=== PATIENT | female | born 1955 | race Caucasian/White ===

== ENCOUNTER → 2017-02-13 | Outpatient (CLI) | payer BC, OTHER ==
[~2017-02-13] MED LIST: CPR500T PO; DICY20TA10 PO; ESTR42.52 VG; HYDR-3583 PO; LOVA60TA2 PO; OMEP-10 PO; ONDAN4ODT SL; OXYC-12 PO
--- NOTE | 2017-02-14 10:37 | Diagnostic Imaging Report ---
Bilateral screening mammogram The current study was also evaluated with a Computer Aided Detection (CAD) system. Indication: Screening. No current complaints stated on the questionnaire. COMPARISON: 02/10/16 FINDINGS: The breasts are composed of scattered fibroglandular densities. There are occasional benign-appearing calcifications. Allowing for technique and positional differences, no suspicious change is seen. IMPRESSION: No significant change. ACR BI-RADS Category 2: Benign findings. Result letter will be mailed to the patient. Note: At least 10% of breast cancer is not imaged by mammography. Dictated by: Dictated on workstation # [id number]
== END ==
LOC: RAD 10:04
PROVIDERS: ATTEND Family Medicine
DX: Z12.31 Encounter for screening mammogram for malignant neoplasm of breast (principal)
CPT/HCPCS: 77067

== ENCOUNTER → 2018-01-11 | Outpatient (CLI) | payer BC ==
[~2018-01-11] MED LIST changes: +ATOR10TA66 PO; +ESTR1TAB27 PO; +OMEP20TA7 PO
[2018-01-11 07:56] LABS: BUN/CREATININE RATIO 6; CREATININE SERUM 0.78 MG/DL (0.60-1.30); GFR ESTIMATED > 60
[2018-01-11] MEDS: IOHEXOL 350 MG/ML 100 ML (OMNIPAQUE 350) VIAL IV ONE (08:07)
[2018-01-11] MEDS: NS 250 ML (IVPB) BAG IV ONE (08:08)
--- NOTE | 2018-01-11 11:02 | Diagnostic Imaging Report ---
PROCEDURE: CT abdomen and pelvis with contrast. TECHNIQUE: Multiple contiguous axial images were obtained through the abdomen and pelvis after administration of intravenous contrast. INDICATION: Abdominal pain and constipation. COMPARISON: Comparison is made with prior CT from 03/28/2012. FINDINGS: Imaging through the lung bases does show two tiny subpleural nodules in the posterior lateral left lower lobe, stable when compared with CT from 2012. No discrete liver masses identified. The gallbladder is surgically absent. The pancreas and spleen are unremarkable. No adrenal mass is identified. The kidneys are unremarkable. Aorta is nonaneurysmal. No central retroperitoneal or mesenteric lymphadenopathy is identified. Small and large bowel loops are normal caliber. There is no obstruction. Moderate stool in the right colon is seen. There is no free fluid identified. The bladder is unremarkable. Bony structures are nonacute. IMPRESSION: Essentially unremarkable CT of the abdomen and pelvis with contrast. No significant abnormality is seen. Dictated by: Dictated on workstation # [id number]
== END ==
LOC: RAD 06:45
PROVIDERS: ATTEND Surgery
DX: K59.00 Constipation, unspecified (principal)
CPT/HCPCS: 36415; 74177; 82565; 84520

== ENCOUNTER 2018-01-31 14:00 | Outpatient (CLI) | payer BC ==
[~2018-01-31] VITALS: Ht 167.6 cm; Wt 64.0 kg
[~2018-01-31 14:00] MED LIST changes: -ATOR10TA66 PO; -ESTR1TAB27 PO; -OMEP20TA7 PO
[2018-01-31] MEDS ORDERED: ATOR10TA66 PO (14:21)
[2018-01-31] MEDS ORDERED: ESTR1TAB27 PO (14:21)
[2018-01-31] MEDS ORDERED: OMEP20TA7 PO (14:28)
== END 2018-01-31 14:30 ==
LOC: PREOP 14:00
PROVIDERS: ATTEND Surgery
DX: Z01.818 Encounter for other preprocedural examination (principal); Z87.19 Personal history of other diseases of the digestive system

== ENCOUNTER 2018-02-05 12:52 | Day surgery (SDC) | payer BC ==
[~2018-02-05] VITALS: Ht 167.6 cm; Wt 64.0 kg
[~2018-02-05 12:52] MED LIST changes: +ATOR10TA66 PO; +ESTR1TAB27 PO; +OMEP20TA7 PO
--- OUTSIDE RECORDS SUMMARY | 2018-02-05 12:55 | XMS REPORT | Continuity of Care Document ---
Author Author [facility] Organization [facility] Address Unknown Phone Unavailable Allergies Active Description Code Type Severity Reaction Onset Reported/Identified Relationship to Patient Clinical Status Yes No Known Drug Allergies [id number] Drug Allergy Unknown N/A 05/27/2012 Medications There is no data. Problems Date Dx Coded Attending Type Code Diagnosis Diagnosed By 05/27/2012 Ot 272.0 PURE HYPERCHOLESTEROLEM 05/27/2012 Ot 536.8 STOMACH FUNCTION DIS NEC 05/27/2012 Ot 562.10 DIVERTICULOSIS COLON (W/O MENT OF HEMORR 05/27/2012 Ot V58.69 OTH MED,LT, CURRENT USE 06/11/2012 Ot 789.01 ABDOMINAL PAIN, RIGHT UPPER QUADRANT 07/11/2012 Ot 530.81 ESOPHAGEAL REFLUX 07/11/2012 Ot 575.11 CHRONIC CHOLECYSTITIS 12/28/2014 Ot V76.12 12/28/2014 Ot V76.12 12/28/2014 Ot V76.12 12/28/2014 Ot 721.8 12/28/2014 Ot 723.1 12/28/2014 Ot 562.10 12/28/2014 Ot 564.00 12/28/2014 Ot 787.3 12/28/2014 Ot 787.99 12/28/2014 Ot 789.00 12/28/2014 Ot V72.84 12/28/2014 Ot 789.01 12/28/2014 Ot V72.84 12/28/2014 CLAUDIA CURIEL MD Ot V76.12 12/28/2014 CLAUDIA CURIEL MD Ot V76.12 12/28/2014 NIKHIL MILLIGAN MD Ot 722.4 CERVICAL DISC DEGEN 12/28/2014 NIKHIL MILLIGAN MD Ot V58.69 OTH MED,LT,CURRENT USE 01/22/2015 NIKHIL MILLIGAN MD Ot 722.4 CERVICAL DISC DEGEN 01/22/2015 NIKHIL MILLIGAN MD Ot V58.69 OTH MED,LT,CURRENT USE 07/26/2015 NIKHIL MILLIGAN MD Ot M50.13 CERVICAL DISC DISORDER W RADICULOPATHY, 07/26/2015 NIKHIL MILLIGAN MD Ot Z79.899 OTHER [facility] (CURRENT) DRUG THERAPY 08/16/2015 NIKHIL MILLIGAN MD Ot M50.13 CERVICAL DISC DISORDER W RADICULOPATHY, 08/16/2015 NIKHIL MILLIGAN MD Ot Z79.899 OTHER [employer] (CURRENT) DRUG THERAPY 11/04/2015 NIKHIL MILLIGAN MD Ot M54.2 02/11/2016 CLAUDIA CURIEL MD Ot Z12.31 ENCNTR SCREEN MAMMOGRAM FOR MALIGNANT NE 02/16/2016 CLAUDIA CURIEL MD Ot Z12.31 ENCNTR SCREEN MAMMOGRAM FOR MALIGNANT NE 08/18/2016 Ot V76.12 OTH SCREEN MAMMO-MALIGN NEOPLASM OF JUSTINE 08/18/2016 Ot 721.8 SPINAL DISORDERS NEC 08/18/2016 Ot 723.1 CERVICALGIA 08/18/2016 Ot 562.10 DIVERTICULOSIS COLON (W/O MENT OF HEMORR 08/18/2016 Ot 564.00 UNSPEC CONSTIPATION 08/18/2016 Ot 787.3 FLATUL/ ERUCTAT/GAS PAIN 08/18/2016 Ot 787.99 OTHER GI SYSTEM SYMPTOMS 08/18/2016 Ot 789.00 ABDOMINAL PAIN, UNSPECIFIED SITE 08/18/2016 Ot V72.84 EXAM PRE- OPERATIVE NOS 08/18/2016 Ot 789.01 ABDOMINAL PAIN, RIGHT UPPER QUADRANT 08/18/2016 Ot V72.84 EXAM PRE- OPERATIVE NOS 08/18/2016 CLAUDIA CURIEL MD Ot V76.12 OTH SCREEN MAMMO-MALIGN NEOPLASM OF JUSTINE 08/18/2016 CLAUDIA CURIEL MD Ot V76.12 OTH SCREEN MAMMO-MALIGN NEOPLASM OF JUSTINE 08/18/2016 CLAUDIA CURIEL MD Ot V76.12 OTH SCREEN MAMMO-MALIGN NEOPLASM OF JUSTINE 08/18/2016 NIKHIL MILLIGAN MD Ot M54.2 CERVICALGIA 08/18/2016 CLAUDIA CURIEL MD Ot Z12.31 ENCNTR SCREEN MAMMOGRAM FOR MALIGNANT NE 08/21/2016 GALEN MOMIN MD Ot M48.02 SPINAL STENOSIS, CERVICAL REGION 08/21/2016 GALEN MOMIN MD Ot Z48.89 ENCOUNTER FOR OTHER SPECIFIED SURGICAL A 08/21/2016 GALEN MOMIN MD Ot Z98.1 ARTHRODESIS STATUS 02/14/2017 LEV YU MD Ot Z12.31 ENCNTR SCREEN MAMMOGRAM FOR MALIGNANT NE 02/14/2017 LEV YU MD Ot Z12.31 ENCNTR SCREEN MAMMOGRAM FOR MALIGNANT NE 02/26/2017 LEV YU MD Ot Z12.31 ENCNTR SCREEN MAMMOGRAM FOR MALIGNANT NE 01/10/2018 LEV YU MD Ot Z12.31 ENCNTR SCREEN MAMMOGRAM FOR MALIGNANT NE 01/10/2018 LEV YU MD Ot Z12.31 ENCNTR SCREEN MAMMOGRAM FOR MALIGNANT NE 01/14/2018 KARLI RICHTER DO Ot K59.00 CONSTIPATION, UNSPECIFIED 01/17/2018 KARLI RICHTER DO Ot K59.00 CONSTIPATION, UNSPECIFIED 01/21/2018 KARLI RICHTER DO Ot K59.00 CONSTIPATION, UNSPECIFIED Procedures There is no data. Results Test Result Range [id number] - 01/11/18 07:20 Serum or plasma urea nitrogen measurement (mass/volume) 5 mg/dL 7-18 Serum or plasma creatinine measurement (mass/volume) 0.78 mg/dL 0.60-1.30 Serum or plasma urea nitrogen/creatinine mass ratio 6 NRG Serum or plasma creatinine measurement with calculation of estimated glomerular filtration rate > NRG Encounters ACCT No. Visit Date/Time Discharge Status Pt. Type Provider Facility Loc./Unit Complaint [id number] 01/29/2018 05:56:00 01/29/2018 23:59:59 CLS Outpatient KALRI RICHTER DO [facility] PREOP COLONOSCOPY [id number] 01/11/2018 06:45:00 01/11/2018 23:59:59 CLS Outpatient KARLI RICHTER DO [facility] RAD ABDOMINAL PAIN, BILATERAL LOWER QUADRANT [id number] 02/13/2017 10:04:00 02/13/2017 23:59:59 CLS Outpatient LEV YU MD [facility] RAD SCREENING Z12.31 [id number] 08/18/2016 08:56:00 08/18/2016 23:59:59 CLS Outpatient GALEN MOMIN MD [facility] RAD S/P SPINAL FUSION [id number] 02/10/2016 11:07:00 02/10/2016 23:59:59 CLS Outpatient CLAUDIA CURIEL MD [facility] RAD SCREENING [id number] 09/27/2015 07:54:00 09/27/2015 23:59:59 CLS Outpatient NIKHIL MILLIGAN MD [facility] RAD CERVICALGIA [id number] 08/16/2015 11:42:00 08/16/2015 12:48:00 DIS Outpatient NIKHIL MILLIGAN MD [facility] CARD DISC DISORDER WITH RADICULOPATHY [id number] 07/26/2015 13:15:00 07/26/2015 14:39:00 DIS Outpatient NIKHIL MILLIGAN MD [facility] CARD DDD [id number] 02/01/2015 14:31:00 02/01/2015 23:59:59 CLS Outpatient CLAUDIA CURIEL MD [facility] RAD SCREENING [id number] 01/22/2015 09:54:00 01/22/2015 11:33:00 DIS Outpatient NIKHIL MILLIGAN MD [facility] CARD DDD [id number] 12/28/2014 14:01:00 12/28/2014 15:18:00 DIS Outpatient NIKHIL MILLIGAN MD [facility] CARD DDD [id number] 03/11/2014 10:03:00 03/11/2014 23:59:59 CLS Outpatient CLAUDIA CURIEL MD [facility] RAD SCREENING [id number] 03/10/2013 11:04:00 03/10/2013 23:59:59 CLS Outpatient CLAUDIA CURIEL MD [facility] RAD SCREENING [id number] 02/05/2018 12:45:00 PEN Preadmit KARLI RICHTER DO [facility] ENDO HX DIVERTICULITIS [id number] 12/28/2014 13:59:00 Document Registration [id number] 12/28/2014 13:59:00 Document Registration [id number] 07/09/2012 12:06:00 Document Registration [id number] 06/26/2012 07:53:00 Document Registration [id number] 06/12/2012 09:23:00 Document Registration [id number] 06/11/2012 10:52:00 Document Registration [id number] 05/24/2012 08:41:00 Document Registration [id number] 03/28/2012 08:24:00 Document Registration [id number] 03/13/2012 09:28:00 Document Registration [id number] 03/07/2012 08:38:00 Document Registration [id number] 01/13/2011 10:21:00 Document Registration
--- NOTE | 2018-02-05 13:04 | Progress Note-Pre Operative ---
Pre-Operative Progress Note H&P Reviewed The H&P was reviewed, patient examined and no changes noted. Date Seen by Provider: Feb 05, 2018 Time Seen by Provider: 13:04 Date H&P Reviewed: Feb 05, 2018 Time H&P Reviewed: 13:04 Pre-Operative Diagnosis: blood in stool, b/l lower quadrant abdominal pain KARLI RICHTER DO Feb 05, 2018 13:04
[2018-02-05 13:10] VITALS: BP 118/66
[2018-02-05] MEDS ORDERED: LACTATED RINGERS 1,000 ML IV ONE (13:11)
[2018-02-05] MEDS ORDERED: LACTATED RINGERS 1,000 ML IV PRN (13:15)
[2018-02-05] MEDS ORDERED: MIDAZOLAM 2 MG/2 ML (VERSED) VIAL ONE (13:56)
[2018-02-05] MEDS ORDERED: proPOfol 200 MG/20 ML (DIPRIVAN) VIAL IV ONE (13:56)
--- NOTE | 2018-02-05 14:48 | Discharge Inst-Simple/Standard ---
Discharge Inst-Standard Patient Instructions/Follow Up Plan of Care/Instructions/FU: 2 weeks William Activity as Tolerated: Yes Discharge Diet: Regular Diet (High Fiber) KARLI RICHTER DO Feb 05, 2018 14:48
--- NOTE | 2018-02-05 14:50 | Progress Note-Post Operative ---
Post-Operative Progess Note Surgeon (s)/Soap Worker (s) Surgeon KARLI RICHTER DO Soap Worker: na Pre-Operative Diagnosis blood in stool, b/l lower quadrant abdominal pain Post-Operative Diagnosis diverticulosis, question small area of colitis Procedure & Operative Findings Date of Procedure 02/05/18 Procedure Performed/Findings colonoscopy with cold biopsy sigmoid colon Anesthesia Type per [facility] Estimated Blood Loss Estimated blood loss (mL): min Specimens/Packing Specimens Removed sigmoid cold biopsy KARLI RICHTER DO Feb 05, 2018 14:50
[2018-02-05 15:05] VITALS: BP 122/69
[2018-02-05 15:30] VITALS: BP 118/66
[2018-02-05 15:35] VITALS: BP 118/66
--- NOTE | 2018-02-05 16:03 | Anesthesia-General Post-Op ---
MAC Patient Condition Mental Status/LOC: Same as Preop Cardiovascular: Satisfactory Nausea/Vomiting: Absent Respiratory: Satisfactory Pain: Controlled Complications: Absent Post Op Complications Complications None Follow Up Care/Instructions Patient Instructions None needed. Anesthesiology Discharge Order Discharge Order Patient was seen after the procedure and she was doing well, no complaints, stable vital signs, no apparent adverse anesthesia problems. GAL MADDOX DO Feb 05, 2018 16:03
--- NOTE | 2018-02-06 02:42 | OPERATIVE REPORT ---
DATE OF SERVICE: 02/05/2018 PREOPERATIVE DIAGNOSIS: Blood in stool. Bilateral lower quadrant abdominal pain. POSTOPERATIVE DIAGNOSIS: Diverticulosis, question small area of colitis in the sigmoid colon. PROCEDURE: Colonoscopy with cold biopsy of sigmoid colon. ANESTHESIA: Per [facility]. SURGEON: Karli Thomas DO ESTIMATED BLOOD LOSS: Minimal. COMPLICATIONS: None. INDICATIONS: The patient is a 62-year-old female who has had recent blood in the stool. She is having bilateral lower quadrant abdominal pain. She was explained risks and benefits of procedure and wished to proceed with procedure. Consent was signed on the chart. DESCRIPTION OF PROCEDURE: The patient was taken to the endoscopy suite, placed in left lateral recumbent position. Timeout was performed. Digital rectal exam was performed. some slight hemorrhoidal disease. No polyps, masses or ulcerations. Scope was inserted in the rectum and advanced all the way to the cecum with minimal difficulty. Prep was adequate. There were no polyps, masses or ulcerations in the cecum, ascending, transverse, descending and sigmoid colon. Throughout the entire colon, there is minimal to moderate amount of diverticulosis present. In the sigmoid colon noted to have a small amount of slight erythematous changes. Biopsy of this area was obtained. Question of a small area of colitis. Scope was continued to be slowly retracted back into the rectum, where it was also retroflexed noting just some slight hemorrhoidal disease. No other pathology. Scope was returned to its normal position, slowly withdrawn until completely removed, noting no other pathology. The patient tolerated procedure well without any complications. She was taken to recovery room in stable condition. RECOMMENDATIONS: The patient will follow up in office in 2 weeks to see how she is doing at that time. We would recommend high-fiber diet. We will need repeat colonoscopy in 5 years if family history of colon cancer or polyps. If no history of this, then the patient will be on routine screening in 10 years. If the patient has any problems prior to that, she should be reevaluated at that time. Job ID: [id number] DocumentID: [id number] Dictated Date: 02/05/2018 14:53:41 [employer] Date: 02/06/2018 02:42:18 Dictated By: KARLI THOMAS DO
== END 2018-02-05 15:35 | disposition home or self-care (01) ==
LOC: ENDO 12:52
PROVIDERS: ATTEND Surgery
DX: K92.1 Melena (principal); K57.30 Diverticulosis of large intestine without perforation or abscess without bleeding; F17.210 Nicotine dependence, cigarettes, uncomplicated

== ENCOUNTER → 2018-03-15 | Outpatient (CLI) | payer BC ==
--- NOTE | 2018-03-15 12:45 | Diagnostic Imaging Report ---
Digital mammogram bilateral screening with 3-D tomosynthesis. This study was compared to the prior exams of 02/13/2017, 02/10/2016, and 02/01/2015. At this time, there are no current complaints. The current study was also evaluated with a Computer Aided Detection (CAD) system. FINDINGS: The fibroglandular tissue in both breasts is heterogeneously dense. This does limit the sensitivity of this exam. Overall, there does not appear to have been any significant change when compared to the prior study. No primary or secondary sign of malignancy is noted. 3D tomographic images fail to show any sign of malignancy. IMPRESSION: There is no radiographic evidence for malignancy. ACR BI-RADS Category 1: Negative. Result letter will be mailed to the patient. Note: At least 10% of breast cancer is not imaged by mammography. Dictated by: Dictated on workstation # [id number]
== END ==
LOC: RAD 09:47
PROVIDERS: ATTEND Family Medicine
DX: Z12.31 Encounter for screening mammogram for malignant neoplasm of breast (principal)
CPT/HCPCS: 77067

== ENCOUNTER → 2019-03-17 | Outpatient (CLI) | payer BC ==
--- NOTE | 2019-03-17 12:33 | Diagnostic Imaging Report ---
INDICATION: Routine screening. COMPARISON: Comparison is made with prior mammograms from 03/15/2018 and 02/13/2017. TECHNIQUE: 2-D and 3-D bilateral screening mammography was performed. The current study was also evaluated with a Computer Aided Detection (CAD) system. 3-D tomosynthesis was also performed and reviewed. FINDINGS: Both breasts are heterogeneously dense, limiting the sensitivity of mammography. The parenchymal pattern is stable. No mass or malignant-appearing microcalcifications are seen. Axillae are unremarkable. IMPRESSION: No mammographic features suspicious for malignancy are identified. ACR BI-RADS Category 1: Negative. Result letter will be mailed to the patient. Note: At least 10% of breast cancer is not imaged by mammography. Dictated by: Dictated on workstation # [id number]
== END ==
LOC: RAD 10:20
PROVIDERS: ATTEND Family Medicine
DX: Z12.31 Encounter for screening mammogram for malignant neoplasm of breast (principal)
CPT/HCPCS: 77067

== ENCOUNTER → 2019-06-12 | Outpatient (CLI) | payer BC ==
[2019-06-12 16:17] LABS: BASOPHILS % (AUTO) 0 % (0-10); EOSINOPHILS # (AUTO) 0.1 10^3/uL (0.0-0.3); EOSINOPHILS % (AUTO) 1 % (0-10); HEMATOCRIT 45 % (35-52); LYMPHOCYTES # (AUTO) 1.9 X 10^3 (1.0-4.0); LYMPHOCYTES % (AUTO) 35 % (12-44); MEAN CORPUSCULAR HEMOGLOBIN 32 PG (25-34); MEAN CORPUSCULAR HGB CONC 33 G/DL (32-36); MEAN CORPUSCULAR VOLUME 96 FL (80-99); MEAN PLATELET VOLUME 8.7 FL (7.4-10.4); MONOCYTES # (AUTO) 0.4 X 10^3 (0.0-1.0); MONOCYTES % (AUTO) 7 % (0-12); NEUTROPHILS # (AUTO) 3.2 X 10^3 (1.8-7.8); NEUTROPHILS % (AUTO) 58 % (42-75); PLATELET COUNT 191 10^3/uL (130-400); RED CELL DISTRIBUTION WIDTH 12.2 % (10.0-14.5); WHITE BLOOD COUNT 5.5 10^3/uL (4.3-11.0)
[2019-06-12 16:28] LABS: ALANINE AMINOTRANSFERASE 20 U/L (0-55); ALBUMIN 4.4 GM/DL (3.2-4.5); ALKALINE PHOSPHATASE 61 U/L (40-136); BILIRUBIN,TOTAL 0.7 MG/DL (0.1-1.0); BUN/CREATININE RATIO 10; CALCIUM 9.2 MG/DL (8.5-10.1); CARBON DIOXIDE 27 MMOL/L (21-32); CHLORIDE 106 MMOL/L (98-107); CREATININE SERUM 0.87 MG/DL (0.60-1.30); GFR ESTIMATED > 60; GLUCOSE 108 MG/DL (70-105); SODIUM 143 MMOL/L (135-145); TOTAL PROTEIN 6.9 GM/DL (6.4-8.2)
== END ==
LOC: LAB 15:48
PROVIDERS: ATTEND Surgery
DX: R10.31 Right lower quadrant pain (principal)
CPT/HCPCS: 36415; 80053; 85025

== ENCOUNTER 2019-08-14 05:34 | Outpatient (CLI) | payer BC ==
[~2019-08-14] VITALS: Ht 167 cm; Wt 65.0 kg
[2019-08-14] MEDS ORDERED: MESA0.37 PO (10:44)
[2019-08-14] MEDS ORDERED: ESCI10TA55 PO (10:44)
[2019-08-14] MEDS ORDERED: PANT40TA3 PO (10:44)
[2019-08-14] MEDS ORDERED: POLY17PO6 PO (10:47)
[2019-08-19] MEDS ORDERED: SUCR1TAB36 PO (11:24)
== END 2019-08-14 10:49 | disposition home or self-care (01) ==
LOC: PREOP 05:34
PROVIDERS: ATTEND Surgery
DX: Z01.818 Encounter for other preprocedural examination (principal)

== ENCOUNTER → 2020-03-19 | Outpatient (CLI) | payer BC ==
[~2020-03-19] MED LIST changes: +ESCI10TA55 PO; +MESA0.37 PO; +PANT40TA3 PO; +POLY17PO6 PO; +SUCR1TAB36 PO
--- NOTE | 2020-03-19 12:51 | Diagnostic Imaging Report ---
EXAM: Digital mammogram, bilateral screening. COMPARISON: This study was compared to the prior exams of 03/17/2019, 03/15/2018 and 02/13/2017. There are no current complaints. The fibroglandular tissue in both breasts is heterogeneously dense. This does limit the sensitivity of this exam. In the interval since the previous study, 2 nodular densities have developed in the 6 o'clock position of the left breast at mid depth. These measure approximately 7.4 and 5.1 mm in size. The tomographic views show that these nodular densities have fairly smooth borders and I suspect that these are a benign process. Even so, I would recommend that a compression view of this area be obtained in both the CC and MLO projections as well as a true lateral view. Ultrasound of this portion of the left breast should also be performed. The overall appearance of the right breast has not changed significantly. IMPRESSION: Additional mammographic views and ultrasound of the left breast would be recommended for further study. ACR BI-RADS Category 4: Suspicious abnormality. Result letter will be mailed to the patient. Note: At least 10% of breast cancer is not imaged by mammography. Dictated by: Dictated on workstation # [id number]
== END ==
LOC: RAD 11:00
PROVIDERS: ATTEND Nurse Practitioner Family
DX: Z12.31 Encounter for screening mammogram for malignant neoplasm of breast (principal)
CPT/HCPCS: 77063; 77067

== ENCOUNTER → 2020-03-31 | Outpatient (CLI) | payer BC ==
--- NOTE | 2020-03-31 18:50 | Diagnostic Imaging Report ---
INDICATION: Left breast nodules. COMPARISON: Diagnostic mammogram performed 03/31/2020 and screening mammogram of 03/19/2020. EXAMINATION: Sonographic interrogation of the inferior left breast was performed. FINDINGS: There are two cysts at this 6:00 location of the left breast, 2-4 cm from the nipple. Largest cyst measures 8 mm x 4 mm x 7 mm. Smaller cyst measures 5 mm x 2 mm x 5 mm. These correspond to the mammographic densities. No solid mass is detected. IMPRESSION: Simple cysts at the 6:00 location of the left breast, corresponding to the mammographic densities. Patient may return to routine annual screening mammography. ACR BI-RADS Category 2: Benign findings. Result letter will be mailed to the patient. Note: At least 10% of breast cancer is not imaged by mammography. Dictated by: Dictated on workstation # [id number]
--- NOTE | 2020-04-01 10:40 | Diagnostic Imaging Report ---
INDICATION: Left breast densities. Patient presents for additional views. Correlation is made with recent screening study from 03/19/2020. Unilateral left 2-D and 3-D diagnostic mammography was performed. This includes spot compression CC and ML views as well as conventional 90 degree lateral view. Additional views show 2 circumscribed nodules in the inferior left breast 2 to 4 cm from the nipple. These are approximate 6-6:30 location. These most likely represent benign nodules. Further evaluation with ultrasound is recommended. No other suspicious abnormality is detected. IMPRESSION: BI-RADS code 0 Persistent nodular densities inferior left breast. Further evaluation with ultrasound is recommended and will be performed today. ACR BI-RADS Category 0: Incomplete. (Needs additional imaging evaluation). Result letter will be mailed to the patient. Note: At least 10% of breast cancer is not imaged by mammography. Dictated by: Dictated on workstation # [id number]
== END ==
LOC: RAD 13:26
PROVIDERS: ATTEND Nurse Practitioner Family
DX: N60.02 Solitary cyst of left breast (principal); N63.20 Unspecified lump in the left breast, unspecified quadrant; R92.2 Inconclusive mammogram; R92.8 Other abnormal and inconclusive findings on diagnostic imaging of breast
CPT/HCPCS: 76642; 77065; G0279

== ENCOUNTER → 2021-04-05 | Outpatient (CLI) | payer BC ==
[~2021-04-05] MED LIST changes: +ESCI-2 PO; -ESCI10TA55 PO; -PANT40TA3 PO; +PANT40TA52 PO
--- NOTE | 2021-04-05 16:34 | Diagnostic Imaging Report ---
INDICATION: Routine screening. COMPARISON: 03/19/2020 and 03/17/2019. TECHNIQUE: 2D and 3D bilateral screening mammography was performed with CAD. FINDINGS: Both breasts are heterogeneously dense, limiting the sensitivity of mammography. Circumscribed densities in the inferior and slightly medial left breast are again noted and have previously been shown to represent cysts. A density in the upper and outer aspect of the right breast does appear to be slightly more prominent on today's study. This may represent a cyst as well but additional views are recommended. No other masses are identified. No malignant-appearing microcalcifications are seen. The axillae are unremarkable. IMPRESSION: Right breast density. Additional views are recommended for further evaluation. ACR BI-RADS Category 0: Incomplete. (Needs additional imaging evaluation). Result letter will be mailed to the patient. Note: At least 10% of breast cancer is not imaged by mammography. Dictated by: Dictated on workstation # [id number]
== END ==
LOC: RAD 15:39
PROVIDERS: ATTEND Family Medicine
DX: Z12.31 Encounter for screening mammogram for malignant neoplasm of breast (principal)
CPT/HCPCS: 77063; 77067

== ENCOUNTER → 2021-04-13 | Outpatient (CLI) | payer BC ==
--- NOTE | 2021-04-13 14:56 | Diagnostic Imaging Report ---
Indication: Right breast density. Patient presents for additional views. Correlation is made with recent screening study from 04/05/2021. Unilateral right 2-D and 3-D diagnostic mammography was performed. This includes spot compression CC and ML views as well as conventional 90 lateral views. Additional views fail to demonstrate a discrete mass. Area of density noted on screening mammogram may represent superimposed tissue. No suspicious microcalcifications are seen. IMPRESSION: BI-RADS Category 1 Additional views fail to demonstrate a discrete mass. The patient may return to routine annual screening mammography. ACR BI-RADS Category 1: Negative. Result letter will be mailed to the patient. Note: At least 10% of breast cancer is not imaged by mammography. Dictated by: Dictated on workstation # [id number]
== END ==
LOC: RAD 14:15
PROVIDERS: ATTEND Family Medicine
DX: R92.2 Inconclusive mammogram (principal)
CPT/HCPCS: 77065; G0279

== ENCOUNTER → 2022-04-07 | Outpatient (CLI) | payer BC ==
[~2022-04-07] MED LIST changes: +OMEP20TA56 PO; -OMEP20TA7 PO
--- NOTE | 2022-04-10 08:51 | Diagnostic Imaging Report ---
INDICATION: Routine screening. COMPARISON: 04/05/2021 and 03/19/2020. TECHNIQUE: 2D and 3D bilateral screening mammography was performed with CAD. FINDINGS: Both breasts remain heterogeneously dense, limiting the sensitivity of mammography. Nodular densities in the left breast appear smaller when compared with the prior exam, likely diminution of cysts. The density in the outer right breast appears stable. No new mass or malignant-appearing microcalcifications are seen. The axillae are unremarkable. IMPRESSION: No mammographic features suspicious for malignancy are identified. ACR BI-RADS Category 2: Benign findings. Result letter will be mailed to the patient. Note: At least 10% of breast cancer is not imaged by mammography. Dictated by: Dictated on workstation # [id number]
== END ==
LOC: RAD 15:35
PROVIDERS: ATTEND Nurse Practitioner Family
DX: Z12.31 Encounter for screening mammogram for malignant neoplasm of breast (principal)
CPT/HCPCS: 77063; 77067

== ENCOUNTER → 2023-04-09 | Outpatient (CLI) | payer BC, MEDICARE ==
--- NOTE | 2023-04-09 14:11 | Diagnostic Imaging Report ---
Indication: Routine screening Comparison is made with prior mammogram from 04/07/2022 and 04/05/2021. 2-D and 3-D bilateral screening mammography was performed with CAD. The current study was also evaluated with a Computer Aided Detection (CAD) system. Both breasts are heterogeneously dense, limiting the sensitivity of mammography. The parenchymal pattern is stable. No mass or malignant-appearing microcalcifications are seen. Axillae are unremarkable. IMPRESSION: BI-RADS Category 1 No mammographic features suspicious for malignancy are identified. ACR BI-RADS Category 1: Negative. Result letter will be mailed to the patient. Note: At least 10% of breast cancer is not imaged by mammography. Dictated by: Dictated on workstation # [id number]
== END ==
LOC: RAD 10:51
PROVIDERS: ATTEND Physician Assistant
DX: Z12.31 Encounter for screening mammogram for malignant neoplasm of breast (principal)
CPT/HCPCS: 77063; 77067